=== PATIENT | female | born 1975 ===

== ENCOUNTER → 2021-04-19 10:13 | Outpatient (CLI) | payer OTHER, SELFPAY ==
--- NOTE | ~2021-04-19 | US_ITS ---
EXAMINATION: US pelvic complete w TV DATE: 04/19/2021 10:42 INDICATION: Right lower quadrant pain and fullness TECHNIQUE: Multiple transabdominal and endovaginal sonographic images of the pelvis were obtained. COMPARISON: None. FINDINGS: The uterus measures 10.4 x 4.7 x 5.7 cm. There appears to be a 3.2 cm isoechoic intramural fibroid of the anterior uterine body. The endometrial complex measures 7 mm. The right ovary measures 2.9 x 1.9 x 3.4 cm. The left ovary measures 2.1 x 1.7 x 2.8 cm. There is normal vascular flow in the ovaries. There is no free fluid in the pelvis. IMPRESSION: 1. No sonographic correlate for the patient's symptoms. Reviewed, dictated and finalized at location F. ANALYST
== END ==
PROVIDERS: PCP Family Medicine; Visit Provider Family Medicine
DX: R10.31 Right lower quadrant pain (principal)
CPT/HCPCS: 76830; 76856

== ENCOUNTER → 2021-06-07 10:08 | Outpatient (CLI) | payer OTHER, SELFPAY ==
--- NOTE | ~2021-06-07 | MM_ITS ---
EXAMINATION: MM screening chris BI w catherine HISTORY: Screening mammogram, family history of breast cancer in her mother. TECHNIQUE: Craniocaudal and mediolateral oblique 3-D tomosynthesis images were obtained and synthetic 2-D images were generated. CAD analysis was submitted and interpreted. COMPARISON: No prior mammogram is available for comparison at this institution. BREAST PARENCHYMAL COMPOSITION: The breasts are almost entirely fatty. FINDINGS: There is no evidence of suspicious mass, calcification, or architectural distortion to sugg est malignancy in either breast. IMPRESSION: 1. No mammographic evidence of malignancy. 2. Recommend routine screening mammography in one year. BI-RADS Category 1: Negative Reviewed, dictated and finalized at location A.
== END ==
PROVIDERS: PCP Family Medicine; Visit Provider Family Medicine
DX: Z12.31 Encounter for screening mammogram for malignant neoplasm of breast (principal)
CPT/HCPCS: 77063; 77067

== ENCOUNTER 2025-02-21 15:33 | Outpatient (CLI) | payer OTHER, SELFPAY ==
--- NOTE | ~2025-02-21 | US_ITS ---
EXAMINATION: US pelvic complete, 02/21/2025 15:34 PEDIATRICIAN ACTIVE PRACTICE HISTORY: abnormal uterine bleeding Comparison: None Technique: Archibald-scale and color Doppler images were obtained. Findings: Uterus: Uterus anteverted 10.4 x 5.2 x 6.2 cm. . Endometrium 7 mm. Right Ovary:Right ovary 2.9 x 1.2 x 2.3 cm, no adnexal mass, normal flow. Left Ovary: Left ovary 3 x 1.7 x 2.4 cm, no adnexal mass, normal flow Free Fluid: None Impression: No acute abnormality. Reviewed, dictated and finalized at location P. ATRICIAN ACTIVE PRACTICE Impression: No acute abnormality.
== END 2025-02-21 15:34 | disposition home or self-care (01) ==
LOC: MICIMG 15:33
PROVIDERS: PCP Family Medicine
DX: N93.8 Other specified abnormal uterine and vaginal bleeding (principal)
CPT/HCPCS: 76856